=== PATIENT | female | born 1995 | race Asian ===

== ENCOUNTER → 2023-11-30 09:14 | Outpatient (REF) | payer OTHER, SELFPAY | LOC: PNTC 09:14 | PROVIDERS: ATTENDING PHYSICIAN Obstetrics & Gynecology | DX: Z36.0 Encounter for antenatal screening for chromosomal anomalies (principal); Z36.82 Encounter for antenatal screening for nuchal translucency | CPT/HCPCS: 76801; 76813 ==

== ENCOUNTER → 2023-12-16 10:09 | Outpatient (REF) | payer OTHER, SELFPAY | LOC: PNTC 10:09 | PROVIDERS: ATTENDING PHYSICIAN Obstetrics & Gynecology | DX: O99.210 Obesity complicating pregnancy, unspecified trimester (principal) | CPT/HCPCS: 76805 ==

== ENCOUNTER → 2024-01-24 09:24 | Outpatient (REF) | payer OTHER, SELFPAY | LOC: PNTC 09:24 | PROVIDERS: ATTENDING PHYSICIAN Obstetrics & Gynecology | DX: O99.210 Obesity complicating pregnancy, unspecified trimester (principal) | CPT/HCPCS: 76811 ==

== ENCOUNTER → 2024-02-15 09:08 | Outpatient (REF) | payer OTHER, SELFPAY | LOC: PNTC 09:08 | PROVIDERS: ATTENDING PHYSICIAN Obstetrics & Gynecology | DX: O99.210 Obesity complicating pregnancy, unspecified trimester (principal) | CPT/HCPCS: 76815 ==

== ENCOUNTER → 2024-03-07 09:40 | Outpatient (REF) | payer OTHER, SELFPAY | LOC: PNTC 09:40 | PROVIDERS: ATTENDING PHYSICIAN Obstetrics & Gynecology | DX: O99.210 Obesity complicating pregnancy, unspecified trimester (principal) | CPT/HCPCS: 76816 ==

== ENCOUNTER → 2024-04-13 08:51 | Outpatient (REF) | payer OTHER, SELFPAY | LOC: PNTC 08:51 | PROVIDERS: ATTENDING PHYSICIAN Obstetrics & Gynecology | DX: O99.210 Obesity complicating pregnancy, unspecified trimester (principal) | CPT/HCPCS: 76816 ==

== ENCOUNTER → 2024-05-11 09:11 | Outpatient (REF) | payer OTHER, SELFPAY | LOC: PNTC 09:11 | PROVIDERS: ATTENDING PHYSICIAN Obstetrics & Gynecology | DX: O99.210 Obesity complicating pregnancy, unspecified trimester (principal) | CPT/HCPCS: 59025; 76815 ==

== ENCOUNTER → 2024-05-18 09:11 | Outpatient (REF) | payer OTHER, SELFPAY | LOC: PNTC 09:11 | PROVIDERS: ATTENDING PHYSICIAN Obstetrics & Gynecology | DX: O99.210 Obesity complicating pregnancy, unspecified trimester (principal) | CPT/HCPCS: 59025; 76816 ==

== ENCOUNTER → 2024-05-25 09:17 | Outpatient (REF) | payer OTHER, SELFPAY | LOC: PNTC 09:17 | PROVIDERS: ATTENDING PHYSICIAN Obstetrics & Gynecology | DX: O99.210 Obesity complicating pregnancy, unspecified trimester (principal) | CPT/HCPCS: 36415; 59025; 76815 ==

== ENCOUNTER → 2024-06-01 09:39 | Outpatient (REF) | payer OTHER, SELFPAY | LOC: PNTC 09:39 | PROVIDERS: ATTENDING PHYSICIAN Obstetrics & Gynecology | DX: O99.210 Obesity complicating pregnancy, unspecified trimester (principal) | CPT/HCPCS: 59025; 76815 ==

== ENCOUNTER → 2024-06-08 08:46 | Outpatient (REF) | payer OTHER, SELFPAY | LOC: PNTC 08:46 | PROVIDERS: ATTENDING PHYSICIAN Obstetrics & Gynecology | DX: O99.210 Obesity complicating pregnancy, unspecified trimester (principal) | CPT/HCPCS: 59025; 76815 ==

== ENCOUNTER → 2024-06-13 08:41 | Outpatient (REF) | payer OTHER, SELFPAY | LOC: PNTC 08:41 | PROVIDERS: ATTENDING PHYSICIAN Obstetrics & Gynecology | DX: O99.210 Obesity complicating pregnancy, unspecified trimester (principal) | CPT/HCPCS: 59025; 76815 ==

== ENCOUNTER 2024-06-16 16:25 | Inpatient (IN) | payer OTHER, SELFPAY ==
[2024-06-16 16:42] VITALS: BMI 43.9
[2024-06-16 16:51] VITALS: BP 122/68
[2024-06-16 17:13] LABS: % Basophils 0.2 % (0-2); % Eosinophils 0.5 % (0-6); % Immature Granulocytes 0.4 % (0-0.5); % Lymphocytes 18.4 % (20.5-51.1); % Monocytes 6.1 % (1.7-9.3); % Neutrophils 74.4 % (42.2-75.2); Absolute Eosinophils 0.1 10^3/uL (0-0.7); Absolute Immature Granulocytes 0.1 10^3/uL (0-0.05); Absolute Lymphocytes 2.7 10^3/uL (1.2-3.4); Absolute Monocytes 0.9 10^3/uL (0.1-0.6); Hematocrit 40.2 % (37.0-47.0); Mean Corp Hgb Conc. 34.8 g/dL (33.0-37.0); Mean Corpuscular Hgb 30.6 pg (27.0-31.0); Mean Platelet Volume 11.1 fL (7.4-10.4); Nucleated Red Blood Cells % 0 %; Platelet Count 358 10^3/uL (130-400); Red Blood Cell Count 4.57 10^6/uL (4.20-5.40); Red Cell Dist. Width 14.6 % (11.5-14.5); White Blood Cell Count 14.8 10^3/uL (4.8-10.8)
[2024-06-16] MEDS: LR 1000 IV (20:09)
[2024-06-16] MEDS: PITOCIN 30 UNITS/NSS 500 ML IV (20:10)
[2024-06-17] MEDS: SUBLIMAZE 100 MCG EPIDURAL (00:10)
[2024-06-17] MEDS: FENTANYL/BUPIVACAINE 1e-08 EPIDURAL (00:20)
[2024-06-17] MEDS: LR 1000 IV (00:36)
[2024-06-17] MEDS: MOTRIN 600 MG PO ×3 (04:23→20:44)
[2024-06-17] MEDS: SENOKOT-S 1 TABLET PO (08:41)
[2024-06-17] MEDS: PRENATAL PLUS 1 TABLET PO (08:41)
[2024-06-18] MEDS: MOTRIN 600 MG PO ×2 (03:04→14:31)
[2024-06-18 05:13] LABS: Hematocrit 33.8 % (37.0-47.0); Hemoglobin 11.6 g/dL (12.0-16.0)
[2024-06-18] MEDS: PRENATAL PLUS 1 TABLET PO (15:23)
[2024-06-18] MEDS: TYLENOL 650 MG PO (15:23)
[2024-06-19] MEDS: MOTRIN 600 MG PO (05:14)
[2024-06-19] MEDS: TYLENOL 650 MG PO (05:15)
[2024-06-19] MEDS: PRENATAL PLUS 1 TABLET PO (07:40)
[2024-06-19] MEDS: M-M-R II 0.5 ML SC (08:15)
[2024-06-20 12:38] LABS: Syphilis/T. pallidum Ab Reflex Negative (Negative)
== END 2024-06-19 12:36 | disposition home or self-care (01) | DRG 807 ==
LOC: LDRP 16:25
PROVIDERS: ADMITTING PHYSICIAN Obstetrics & Gynecology; CONSULT PHYSICIAN Anesthesiology; CONSULT PHYSICIAN Nurse Anesthetist, Certified Registered; CONSULT PHYSICIAN Registered Nurse; CONSULT PHYSICIAN Specialist; CONSULT PHYSICIAN Student in an Organized Health Care Education/Training Program
PROC: 0KQM0ZZ Repair Perineum Muscle, Open Approach (ICD-10-PCS; 2024-06-16)
PROC: 10E0XZZ Delivery of Products of Conception, External Approach (ICD-10-PCS; 2024-06-16)
DX: O69.81X0 Labor and delivery complicated by cord around neck, without compression, not applicable or unspecified (principal); Z37.0 Single live birth; O70.1 Second degree perineal laceration during delivery; Z3A.40 40 weeks gestation of pregnancy
CPT/HCPCS: 88307; 85014; 85018; 85025; 86780; 86850; 86900; 86901; 90707

== ENCOUNTER 2024-06-20 17:58 | Emergency (ER) | payer OTHER, SELFPAY ==
[2024-06-20 18:06] VITALS: BP 153/93
--- NOTE | 2024-06-20 18:50 | ED.GENMED ---
History of Present Illness
General
Chief Complaint: Abdominal Pain
Source: patient
Exam Limitations: none
Time Seen by Provider: 06/20/24 18:39
History of Present Illness
History of Present Illness:
This is a 29 year old female that comes in with c/o lower abd pain. States that she is post 4 days. States that when she was in the hospital she started with right lower abd pain and they gave her medication and it went away. States that she
had the pain again the next night and again was given medication and it went away. States that this was only on the right side. Then last night she had the pain on the left side and it only happens when she lays down. States that she took Advil and
Tylenol before coming and the pain is a little better. States that she felt hot last night and thinks she had a fever but did not check her temp. States that she also has a slight headache. Denies any shaking chills, chest pain, SOB, nausea,
vomiting, diarrhea, dizziness, urinary burning.
Past History
Past History
ED Past Medical History: Other (Hemorrhoids, )
ED Past Surgical History: Cholecystectomy
Social History
Tobacco: Non-smoker
Alcohol: None
Personal:
Living: with family
Review of Systems
Review of Systems
All Other Systems: ROS reviewed and negative except as documented in HPI and ROS
Constitutional: Reports fever ([place]um[place] hot); Denies chills
EENT: Reports no symptoms
Respiratory: Reports no symptoms; Denies cough or trouble breathing
Cardiac: Reports no symptoms; Denies chest pain
ABD/GI: Reports abdominal pain (Lower abd pain); Denies nausea, vomiting or diarrhea
: Reports no symptoms; Denies dysuria, frequency or urgency
Musculoskeletal: Reports no symptoms
Skin: Reports no symptoms
Neurological: Reports headache (Slight); Denies dizzy
Psychiatric: Reports no symptoms
Phy Exam
General Physical Exam
General Presentation: well appearing and no apparent distress
General age: appears stated age
General Skin: warm and dry
General Habitus: normal
General Mental: alert
General Hydration: appears well hydrated
ENT Exam
ENT Exam: TM's normal, pharynx normal and neck supple
Eye Exam
Eye Exam: EOMI
Cardiovascular Exam
Cardiovascular Exam: regular rate/rhythm, no edema, no murmur and normal peripheral pulses
Pulmonary Exam
Pulmonary Exam: lungs clear, no respiratory distress, no rales, chest non tender, no crackles, no rhonchi, no wheezing and no cough
Gastrointestinal Exam
Gastrointestinal Exam: normal bowel sounds, non tender, soft, no organomegaly, no pulsatile mass and non distended
Musculoskeletal Exam
Musculoskeletal Exam: full ROM and edema (ankles and lower legs slightly non pitting)
Skin Exam
Skin Exam: normal color, warm/dry, no rash and no petechia
Psychiatric Exam
Psychiatric Exam: normal mood/affect
Course
Orders/Labs/Results
Orders:
Orders
06/20/24 18:49
CT Abd/pelvis W Iv Cont Urgent
Comment:
Reason For Exam: lower abd pain
0.9% Sodium Chloride 500 ml [Nss] 500 ml IV BOLUS
Test Result ONCE
06/20/24 18:55
Complete Blood Count/With Diff Urgent
Comprehensive Metabolic Panel Urgent
HCG, Serum Qualitative Screen Urgent
06/20/24 19:35
Urinalysis Reflex To Culture Urgent
Date Specimen was Collected: 06/20/24
Time Specimen was Collected: 19:28
Urine Microscopic Reflex Cult Urgent
Urine Culture Urgent
TENZIN Source: U
Specimen Description:
Date Specimen was Collected: 06/20/24
Time Specimen was Collected: 19:28
06/20/24 21:41
CefTRIAXone [Rocephin] 1,000 mg IV NOW STA
Abnormal Lab Results
06/20/24 06/20/24
18:55 19:35
WBC 14.6 H 10^3/uL
(4.8-10.8)
Abs Immat Gran (auto) 0.1 H 10^3/uL
(0-0.05)
Absolute Neuts (auto) 10.9 H 10^3/uL
(1.4-6.5)
Absolute Monos (auto) 1.0 H 10^3/uL
(0.1-0.6)
Lymphocytes % 15.7 L %
(20.5-51.1)
AST 42 H U/L
(14-36)
ALT 40 H U/L
(0-35)
Ur Occult Blood Reflex 4+ A
(Negative)
Leukocyte Esterase Rfl 2+ A
(Negative)
Urine RBC 26-30 A /HPF
(0-2)
Urine WBC (Reflex) 30-40 A /HPF
(0-5)
Urine Bacteria (Reflex) Few A
(Negative)
06/20/24 18:55
06/20/24 18:55
Leukocytosis, AST/ALT slightly elevated. Urine positive for infection. HCG positive but just had Baby 4 days ago.
Vital Signs
Initial and Last Documented VS:
Initial Vital Signs
Temp Pulse Resp BP Pulse Ox
99.1 F 102 18 153/93 100
06/20/24 18:06 06/20/24 18:06 06/20/24 18:06 06/20/24 18:06 06/20/24 18:06
Last Documented Vital Signs
Temp Pulse Resp BP Pulse Ox
99.1 F 72 18 100/70 99
06/20/24 18:06 06/20/24 20:30 06/20/24 20:39 06/20/24 20:00 06/20/24 20:30
MDM/Problems Addressed
Differential Diagnosis Includes:
Musculoskeletal pain,
MDM/Problems Addressed:
This is a 29 year old female that comes in with c/o lower abd pain. States that she is post 4 days and she had right sided pain when in the hospital and today the pain is on the left side. States that this is only when she lays down.
Will check labs and get CT scan
Back into see patient. Explained that she has a urinary tract infection. CT is normal. There are no kidney stones, bowel obstruction, or any other acute process. Patient to increase her water intake to 8-8oz glasses daily. Will give IV antibiotic
here and sent prescription to the pharmacy. Tylenol or Ibuprofen for any pains. Patient to return with any concerns.
Chronic conditions affecting care:
NA
Acute Exacerbation and/or Progression of Chronic Illness:
NA
*Radiology
Radiology exam reviewed: radiology read reviewed (CT-NO CT evidence for an acute process in the abdomen or pelvis. Enlarged uterus. )
*Pulse Oximetry
Patient hypoxic: no
*EKG
Interpreted by ED Provider?: NA
Rate: EKG- N/A
*Chief Lock Operator Interpretation
Rate: Chief Lock Operator- N/A
*Critical Care Note
Total Time (30-74mins, 75-104mins- exclusive of procedures): Not Applicable
ED Attending Note
-
Portions of this chart may have been created with voice recognition software.� Occasional wrong word or��sound alike� substitutions may have occurred due to the inherent limitations of voice recognition software.
Discharge Plan
Departure
Patient Disposition: Home (Routine Discharge)
Date of Disposition: 06/20/24
Time of Disposition: 21:56
Patient with high blood pressure during this ER visit?: No
Condition: Good
Covid-19: Not Applicable
Discharge Problem:
Urinary tract infection
Instructions: Urinary Tract Infection, Adult ED
Prescriptions:
New
cefdinir 300 mg capsule
300 mg PO BID Qty: 14 0RF
No Action
prenat.vits,mireya,pli-lfjv-tkmdg Tablet
1 tab PO DAILY
acetaminophen 325 mg Tablet
650 mg PO Q4HPRN PRN (Reason: mild pain) Qty: 0 0RF
sennosides-docusate sodium 8.6-50 mg Tablet
1 tab PO DAILYPRN PRN (Reason: constipation) Qty: 0 0RF
calcium carbonate [Calcium Antacid] 200 mg calcium (500 mg) Tablet,Chewable
400 mg PO Q6HPRN PRN (Reason: indigestion) Qty: 0 0RF
calcium carbonate [Calcium Antacid] 200 mg calcium (500 mg) Tablet,Chewable
400 mg PO Q6HPRN PRN (Reason: indigestion) Qty: 0 0RF
ibuprofen 600 mg Tablet
600 mg PO Q6HPRN PRN (Reason: moderate pain/cramps) Qty: 30 0RF
Referrals:
Tory Selby CRNP [Family Provider] - Call in 1-3 days for appt
Activity Restrictions/Additional Instructions:
As discussed, your blood work shows that your white blood cell count is elevated. Your Liver enzymes are slightly elevated. Your urine shows that you have a urinary tract infection. You have been given IV antibiotics here and a prescription has been
sent to your Pharmacy that you will start tomorrow. Please increase your water intake to 8-8oz glasses daily. Follow up with the family doctor as needed. You may also use Tylenol or Ibuprofen for any discomfort. IF YOU HAVE ANY OTHER CONCERNS PLEASE
RETURN TO THE EMERGENCY ROOM.
Interventions
Interventions:
*Risk Screen - Suicide Last Done: 06/20/24 18:50
*General Assessment Last Done: 06/20/24 18:50
*Neglect/Abuse Screening Last Done: 06/20/24 18:50
*ED COVID-19 Vaccine History Last Done: 06/20/24 18:06
NM-[id number]-Tdoumuyrzg Assessment Last Done: 06/20/24 18:51
Discharge Date and Time
Print Language: [id number]
[2024-06-20 18:55] VITALS: BP 111/74
[2024-06-20] MEDS: NSS 500 IV (18:56)
[2024-06-20 19:00] VITALS: BP 96/62
[2024-06-20 19:02] LABS: % Basophils 0.2 % (0-2); % Immature Granulocytes 0.5 % (0-0.5); % Lymphocytes 15.7 % (20.5-51.1); % Monocytes 6.8 % (1.7-9.3); % Neutrophils 74.8 % (42.2-75.2); Absolute Eosinophils 0.3 10^3/uL (0-0.7); Absolute Immature Granulocytes 0.1 10^3/uL (0-0.05); Absolute Lymphocytes 2.3 10^3/uL (1.2-3.4); Absolute Neutrophils 10.9 10^3/uL (1.4-6.5); Hematocrit 37.9 % (37.0-47.0); Hemoglobin 13.1 g/dL (12.0-16.0); Mean Corp Hgb Conc. 34.6 g/dL (33.0-37.0); Mean Corpuscular Hgb 30.5 pg (27.0-31.0); Mean Corpuscular Volume 88.1 fL (81.0-99.0); Mean Platelet Volume 9.8 fL (7.4-10.4); Nucleated Red Blood Cells % 0 %; Platelet Count 360 10^3/uL (130-400); Red Cell Dist. Width 14.3 % (11.5-14.5); White Blood Cell Count 14.6 10^3/uL (4.8-10.8)
[2024-06-20 19:20] LABS: HCG, Serum Qualitative Screen Positive
[2024-06-20 19:22] LABS: ALT (SGPT) 40 U/L (0-35); AST (SGOT) 42 U/L (14-36); Albumin 3.5 g/dl (3.5-5.0); Alkaline Phosphatase 125 U/L (38-126); Blood Urea Nitrogen 13 mg/dl (7-17); Calcium 9.1 mg/dl (8.4-10.2); Carbon Dioxide 22 mmol/L (22-30); Chloride 105 mmol/L (98-107); Glucose 84 mg/dl (70-99); Potassium 4.2 mmol/L (3.5-5.1); Sodium 136 mmol/L (135-145); Total Bilirubin 0.3 mg/dl (0.2-1.3); Total Protein 6.4 g/dl (6.3-8.2); eGFR > 60.00
[2024-06-20 19:35] VITALS: BP 124/81
[2024-06-20 20:00] VITALS: BP 100/70
[2024-06-20 20:03] LABS: Urine Albumin Trace (Neg - Trace); Urine Bilirubin Negative (Negative); Urine Character Slightly Cloudy (Clear); Urine Glucose Negative (Negative); Urine Ketone Negative (Negative); Urine Leukocyte 2+ (Negative); Urine Nitrite Negative (Negative); Urine Occult Blood 4+ (Negative); Urine Specific Gravity 1.005 (<1.030); Urine Urobilinogen Negative (Neg - 1+); Urine pH 6.5 (5.0-9.0)
[2024-06-20 20:07] LABS: Urine Color Pink
[2024-06-20 20:13] LABS: Urine Red Blood Cell 26-30 /HPF (0-2); Urine Squamous Cell >30 /LPF (Few)
[2024-06-20 20:14] LABS: Urine Bacteria Few (Negative); Urine White Cell 30-40 /HPF (0-5)
[2024-06-20] MEDS: ROCEPHIN 1000 MG IV (22:22)
== END 2024-06-20 22:26 | disposition home or self-care (01) ==
LOC: EMR 17:58
PROVIDERS: Clinical Nurse Specialist Family Health; EMERGENCY PHYSICIAN Emergency Medicine; FAMILY PHYSICIAN Nurse Practitioner Family
DX: N39.0 Urinary tract infection, site not specified (principal); Z87.19 Personal history of other diseases of the digestive system; Z90.49 Acquired absence of other specified parts of digestive tract
CPT/HCPCS: 99284; 74177; 80053; 81003; 81015; 84703; 85025; 87086; Q9967

== ENCOUNTER → 2024-10-12 08:33 | Outpatient (REF) | payer OTHER, SELFPAY | LOC: HWRAD 08:33 | PROVIDERS: ATTENDING PHYSICIAN Advanced Practice Midwife; PRIMARYCARE PHYSICIAN Nurse Practitioner Family | DX: R10.2 Pelvic and perineal pain (principal) | CPT/HCPCS: 76830; 76856 ==